=== PATIENT | male | born 1995 | race Hispanic/Latino ===

== ENCOUNTER 2016-04-11 18:28 | Emergency (ER) | payer BC ==
[2016-04-11] MEDS ORDERED: Ondansetron HCl/PF 4 MG/2 ML Vial ONE (19:10)
[2016-04-11] MEDS ORDERED: Sodium Chloride 0.9% 1,000 ML ONE (19:10)
[2016-04-11 19:56] LABS: Anion Gap 14 mmol/L (10-20); BUN (Urea Nitrogen) 12 mg/dL (8.4-21.0); Calc. Creatinine Clearance 0 mL/min (70-130); Calcium 8.7 mg/dL (7.8-10.44); Carbon Dioxide 21 mmol/L (22-29); Chloride 104 mmol/L (98-107); Estimated GFR-MDRD Greater than 90
[2016-04-11 20:00] LABS: Band 3 % (5-11); Hematocrit 46.8 % (42.0-52.0); Mean Platelet Volume 8.2 fL (7.4-10.4); Neutrophil 69 % (31-61); White Blood Cell (WBC) Count 13.9 thou/uL (4.8-10.8)
== END 2016-04-11 20:10 | disposition home or self-care (01) ==
LOC: NAV ERS 18:28
DX: J11.1 Influenza due to unidentified influenza virus with other respiratory manifestations (principal); E86.0 Dehydration; E11.9 Type 2 diabetes mellitus without complications; J45.909 Unspecified asthma, uncomplicated; F17.210 Nicotine dependence, cigarettes, uncomplicated; Z79.84 Long term (current) use of oral hypoglycemic drugs
CPT/HCPCS: 80048; 85025; 96361; 96374; J2405; J7050

== ENCOUNTER 2017-01-23 08:55 | Emergency (ER) | payer BC ==
[2017-01-23] MEDS ORDERED: Acetaminophen 500 MG TAB ONE (09:19)
== END 2017-01-23 09:25 ==
LOC: NAV ERS 08:55
DX: S00.03XA Contusion of scalp, initial encounter (principal); J45.909 Unspecified asthma, uncomplicated; E11.9 Type 2 diabetes mellitus without complications; F17.210 Nicotine dependence, cigarettes, uncomplicated; V43.52XA Car driver injured in collision with other type car in traffic accident, initial encounter
CPT/HCPCS: 99283

== ENCOUNTER 2017-06-09 16:03 | Emergency (ER) | payer BC, SELFPAY ==
[2017-06-09] MEDS ORDERED: Lidocaine 1% 20 ML MDV ONE (16:25)
[2017-06-09] MEDS ORDERED: Bacitracin Zinc 1 Packet ONE (16:49)
== END 2017-06-09 17:02 | disposition home or self-care (01) ==
LOC: NAV ERS 16:03
DX: S51.821A Laceration with foreign body of right forearm, initial encounter (principal); E11.9 Type 2 diabetes mellitus without complications; J45.909 Unspecified asthma, uncomplicated; F17.210 Nicotine dependence, cigarettes, uncomplicated; W45.8XXA Other foreign body or object entering through skin, initial encounter
CPT/HCPCS: 12031; J2001

== ENCOUNTER 2017-06-17 07:36 | Emergency (ER) | payer BC ==
[2017-06-17 08:59] LABS: CKMB 8.4 ng/mL (0-6.6)
[2017-06-17 09:00] LABS: Troponin I Less than 0.010 ng/mL (< 0.028)
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
[2017-06-17 09:01] LABS: Anion Gap 23 mmol/L (10-20); BUN (Urea Nitrogen) 15 mg/dL (8.9-20.6); Bilirubin, Total 0.5 mg/dL (0.2-1.2); Calc. Creatinine Clearance 0 mL/min (70-130); Calcium 9.1 mg/dL (7.8-10.44); Carbon Dioxide 17 mmol/L (22-29); Chloride 106 mmol/L (98-107); Estimated GFR-MDRD 68; Glucose 360 mg/dL (70-105); Potassium 4.2 mmol/L (3.5-5.1); Sodium 142 mmol/L (136-145)
[2017-06-17 09:02] LABS: ALT (SGPT) 131 U/L (8-55); AST (SGOT) 160 U/L (5-34); Albumin 4.1 g/dL (3.5-5.0); Alkaline Phosphatase 83 U/L (Less than 750); Globulin 3.3 g/dL (2.4-3.5); Protein, Total 7.4 g/dL (6.0-8.3); White Blood Cell (WBC) Count 20.6 thou/uL (4.8-10.8)
[2017-06-17 09:03] LABS: Manual Diff?? YES; Mean Corpuscular HGB CONC 31.4 g/dL (32.0-36.0); Mean Corpuscular Hemoglobin 27.8 pg (25.0-35.0); Mean Corpuscular Volume 88.3 fL (77.0-87.0); Mean Platelet Volume 8.6 fL (7.4-10.4); Platelet Count 340 thou/uL (130-400); RBC Distribution Width 12.8 % (11.5-14.5); Red Blood Cell (RBC) Count 5.78 mill/uL (4.00-5.20)
[2017-06-17 09:48] LABS: Band 5 % (5-11); Eosinophils 1 % (0-10); Lymphocytes 40 % (28-48); Neutrophil 54 % (31-61)
[2017-06-17 09:51] LABS: MDiff Complete? YES; PLT Morphology Comment Appears Adequate
== END 2017-06-17 08:20 | disposition short-term general hospital (02) ==
LOC: NAV ERS 07:36 → MERGE 07:36 → EDBD 07:36 → NAV ERS 08:20
DX: I46.9 Cardiac arrest, cause unspecified (principal); R41.82 Altered mental status, unspecified; T14.8XXA Other injury of unspecified body region, initial encounter; E11.9 Type 2 diabetes mellitus without complications; J45.909 Unspecified asthma, uncomplicated; V89.2XXA Person injured in unspecified motor-vehicle accident, traffic, initial encounter
CPT/HCPCS: 31500; 32554; 71045; 80053; 82553; 84484; 85025; 86850; 86900; 86901; 86922; 92950; G0390